=== PATIENT | female | born 1985 | race Caucasian/White ===

== ENCOUNTER 2018-09-05 18:38 | Emergency (ER) | payer OTHER ==
--- NOTE | 2018-09-05 18:50 | PDOC ---
Rapid Medical Evaluation Chief Complaint: Toothache Time Seen by Provider: 09/05/18 18:46 Medical Evaluation: Allergies Allergy/AdvReac Type Severity Reaction Status Date / Time azithromycin Allergy Mild Hives Verified 09/05/18 18:45 12 18:46 I have performed a brief in-person evaluation of this patient. The patient presents with a chief complaint of: L lower toothache x several days. Possible submandibular swollen glands. No f/c Pertinent physical exam findings: afebrile I have ordered the following:nothing The patient will proceed to the ED for further evaluation. Discharge Disposition - Diagnosis Toothache - Referrals - Patient Instructions - Post Discharge Activity
[2018-09-05 18:52] VITALS: BP 132/77; PULSE 68; TEMP 98.2; BMI 27.4
[2018-09-05] MEDS ORDERED: BUPIVACAINE HCL/PF (5 MG/ML) 30 ML VIAL IJ ONE (19:29)
--- NOTE | 2018-09-05 19:31 | PDOC ---
History of Present Illness - General Chief Complaint: Toothache Stated Complaint: TOOTHACHE Time Seen by Provider: 09/05/18 18:46 History Source: Patient Exam Limitations: No Limitations - History of Present Illness Initial Comments: 09/05/18 19:25 HISTORY OF PRESENT ILLNESS: 33-year-old woman without significant medical history of presents emergency department for evaluation of toothache for the past 4 days. Patient states sheis to see a dentist and is requesting antibiotics for her toothache. Patient reports taking [id number] medication with minimal relief of pain but is not requesting any pain medication at this time. No recent travel or sick contacts. PAST MEDICAL HISTORY: Denies past medical history SURGICAL HISTORY: Denies ALLERGIES: azithromycin REVIEW OF SYSTEMS General/Constitutional: Denies fever or chills. Denies weakness, weight change. HEENT: Denies change in vision. Denies ear pain or discharge. Denies sore throat. +toothache Cardiovascular: Denies chest pain or shortness of breath. Respiratory: Denies cough, wheezing, or hemoptysis. Gastrointestinal: Denies nausea, vomiting, diarrhea or constipation. Denies rectal bleeding. Genitourinary: Denies dysuria, frequency, or change in urination. Musculoskeletal: Denies joint or muscle swelling or pain. Denies neck or back pain. Skin and breasts: Denies rash or easy bruising. Neurologic: Denies headache, vertigo, loss of consciousness, or loss of sensation. Psychiatric: Denies depression or anxiety. Endocrine: Denies increased thirst. Denies abnormal weight change. Hematologic/Lymphatic: Denies anemia, easy bleeding, or history of blood clots. Allergic/Immunologic: Denies hives or skin allergy. Denies latex allergy. PHYSICAL EXAM General Appearance: Well-appearing, appropriately dressed. No apparent distress , no intoxication. HEENT: EOMI, PERRLA, normal ENT inspection, normal voice, TMs normal, pharynx normal. No conjunctival pallor. No photophobia, scleral icterus. Obvious dental caries to tooth #17. Gingival surface tender to palpation on the buccal aspect at the base of tooth #17. No discharge or drainage present. Swollen submandibular glands present. Neck: Supple. Trachea midline. No tenderness, rigidity, carotid bruit, stridor , lymphadenopathy, or thyromegaly. Respiratory/Chest: Lungs CTAB. No shortness of breath, chest tenderness, respiratory distress, accessory muscle use. No crackles, rales, rhonchi, stridor , wheezing, dullness Cardiovascular: RRR. S1, S2. No JVD, murmur, bradycardia, tachycardia. Past History - Past Medical History Allergies/Adverse Reactions: Allergies Allergy/AdvReac Type Severity Reaction Status Date / Time azithromycin Allergy Mild Hives Verified 09/05/18 18:45 Home Medications: Ambulatory Orders Penicillin V Potassium [Pen Vee K -] 500 mg PO QID #28 tablet 09/05/18 COPD: No Disorders: (POLYCYSTIC OVARIES) - Surgical History Abdominal Surgery: No - Reproductive History Polycystic Ovaries: Yes - Immunization History Immunization Up to Date: Yes - Suicide/Smoking/Psychosocial Hx Smoking Status: No Smoking History: Never smoked Have you smoked in the past 12 months: No Number of Cigarettes Smoked Daily: 0 Hx Alcohol Use: Yes Drug/Substance Use Hx: No Substance Use Type: None Hx Substance Use Treatment: No *Physical Exam - Vital Signs Last Vital Signs Temp Pulse Resp BP Pulse Ox 98.2 F 68 18 132/77 100 09/05/18 18:45 09/05/18 18:45 09/05/18 18:45 09/05/18 18:45 09/05/18 18:45 Moderate Sedation - Procedure Monitoring Vital Signs: Procedure Monitoring Vital Signs Temperature 98.2 F 09/05/18 18:45 Pulse Rate 68 09/05/18 18:45 Respiratory Rate 18 09/05/18 18:45 Blood Pressure 132/77 09/05/18 18:45 O2 Sat by Pulse Oximetry (%) 100 09/05/18 18:45 Medical Decision Making - Medical Decision Making 09/05/18 19:30 A/P: 33-year-old woman with toothache Obvious dental caries tooth #17 Chief 12 tender to palpation on the buccal surface at the base of tooth #17 Unable to express any fluid Submandible lymphadenopathy present 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 500 mg 4 times a day as an outpatient Discharge home *DC/Admit/Observation/Transfer Diagnosis at time of Disposition: Toothache - Discharge Dispostion Disposition: HOME Condition at time of disposition: Stable Decision to Admit order: No - Prescriptions Prescriptions: Penicillin V Potassium [Pen Vee K -] 500 mg PO QID #28 tablet - Referrals - Patient Instructions Printed Discharge Instructions: DI for Dental Pain Additional Instructions: Rest, drink lots of fluids: Teas, water, soups Saltwater gargles/ keep mouth clean and rinse after each meal May use wet teabag for pain relief to area Avoid hard chewing foods, stick to ice cream, Jell-O, yogurt etc. Tylenol or Motrin for fever and pain Complete all medication as prescribed Call [facility] at [phone] Followup with private physician in one to 2 days as needed Return to emergency department for worsened symptoms, fevers, swelling to face or worsened pain - Post Discharge Activity
== END 2018-09-05 19:47 | disposition home or self-care (01) ==
LOC: JER 18:38
PROC: 3E0D3BZ Introduction of Anesthetic Agent into Mouth and Pharynx, Percutaneous Approach (ICD-10-PCS; principal; 2018-09-05)
DX: K02.9 Dental caries, unspecified (principal); K08.89 Other specified disorders of teeth and supporting structures
CPT/HCPCS: 96372; 99281-25

== ENCOUNTER 2021-02-08 13:20 | Inpatient (IN) | payer OTHER ==
[2021-02-08] MEDS ORDERED: ACETAMINOPHEN 325 MG TABLET (FP) PO ONE (16:13)
[2021-02-08 17:09] LABS: BASO % 0.7 % (0-2.0); EOS % 1.3 % (0-4.5); HEMATOCRIT 41.9 % (32.4-45.2); HEMOGLOBIN 14.4 GM/dL (10.7-15.3); LYMPH % 29.7 % (8-40); MCH 30.9 pg (25.7-33.7); MCHC 34.4 g/dl (32.0-36.0); MEAN CELL VOLUME 90.1 fl (80-96); MEAN PLT VOLUME 9.3 fl (7.5-11.1); MONO % 6.9 % (3.8-10.2); NEUT % 61.4 % (42.8-82.8); PLATELET COUNT 396 K/MM3 (134-434); RBC 4.65 M/mm3 (3.60-5.2); WHITE BLOOD COUNT 9.5 K/mm3 (4.0-10.0)
[2021-02-08] MEDS ORDERED: ACETAMINOPHEN 325 MG TABLET (FP) ONE (17:13)
[2021-02-08 17:40] LABS: ALBUMIN 3.6 g/dl (3.4-5.0); CALCIUM 9.3 mg/dL (8.5-10.1)
[2021-02-08 17:41] LABS: BLOOD UREA NITROGEN 10.8 mg/dL (7-18)
[2021-02-08 17:44] LABS: CREATININE 0.7 mg/dL (0.55-1.3)
[2021-02-08 17:45] LABS: TOT PROT 7.5 g/dl (6.4-8.2)
[2021-02-08 17:49] LABS: BILIRUBIN,TOTAL 0.5 mg/dL (0.2-1)
[2021-02-08] MEDS ORDERED: ENOXAPARIN NA (PORCINE) 120 MG/0.8 ML DISP.SYRIN SQ ONE (18:39)
[2021-02-08] MEDS ORDERED: ENOXAPARIN NA (PORCINE) 80 MG/0.8 ML DISP.SYRIN SQ ONE (18:44)
[2021-02-09] MEDS ORDERED: DEXTROSE 5%-0.45% SALINE 1,000 ML IV SCH (00:01)
[2021-02-09] MEDS ORDERED: ACETAMINOPHEN 1000 MG/100 ML VIAL (NON FORMULARY) IVPB PRN (00:01)
[2021-02-09 02:05] VITALS: BMI 30.1
[2021-02-09] MEDS: ENOXAPARIN NA (PORCINE) 80 MG/0.8 ML DISP.SYRIN SQ SCH ×2 (07:47→19:47)
[2021-02-09 08:43] LABS: BASO % 0.6 % (0-2.0); EOS % 2.1 % (0-4.5); HEMATOCRIT 38.8 % (32.4-45.2); HEMOGLOBIN 13.3 GM/dL (10.7-15.3); LYMPH % 42.6 % (8-40); MCH 30.6 pg (25.7-33.7); MCHC 34.3 g/dl (32.0-36.0); MEAN CELL VOLUME 89.4 fl (80-96); MONO % 9.9 % (3.8-10.2); NEUT % 44.8 % (42.8-82.8); PLATELET COUNT 354 K/MM3 (134-434); RBC 4.34 M/mm3 (3.60-5.2); RDW 13.4 % (11.6-15.6); WHITE BLOOD COUNT 6.8 K/mm3 (4.0-10.0)
[2021-02-09 08:45] LABS: INR 1.13 (0.83-1.09); PROTHROMBIN TIME (PATIENT) 13.6 SEC (9.7-13.0)
[2021-02-09 09:13] LABS: BLOOD UREA NITROGEN 11.3 mg/dL (7-18); CALCIUM 8.8 mg/dL (8.5-10.1)
[2021-02-09 09:16] LABS: CREATININE 0.6 mg/dL (0.55-1.3)
[2021-02-09] MEDS ORDERED: ACETAMINOPHEN 500 MG TABLET (FP) PO PRN (13:32)
[2021-02-10] MEDS: ENOXAPARIN NA (PORCINE) 80 MG/0.8 ML DISP.SYRIN SQ SCH (06:14)
[2021-02-10 15:47] VITALS: BP 117/73; PULSE 92; TEMP 98.2
[2021-02-14 10:07] LABS: DRVVT - 56.9 sec (0.0-47.0); DRVVT CONFIRM SECONDS 1.2 ratio (0.8-1.2); dRVVT MIX 43.2 sec (0.0-40.4)
== END 2021-02-10 16:09 | disposition home or self-care (01) | DRG 197 ==
LOC: JER 13:20 → JERBED 18:37 → J8W 22:13
PROVIDERS: ADMIT Internal Medicine; ATTEND Family Medicine
DX: I82.491 Acute embolism and thrombosis of other specified deep vein of right lower extremity (principal); E28.2 Polycystic ovarian syndrome; Z20.822 Contact with and (suspected) exposure to COVID-19; S83.511A Sprain of anterior cruciate ligament of right knee, initial encounter; W19.XXXA Unspecified fall, initial encounter; Y93.89 Activity, other specified; Y92.009 Unspecified place in unspecified non-institutional (private) residence as the place of occurrence of the external cause; Y99.8 Other external cause status
CPT/HCPCS: 36415; 71045-TC-FY; 80048; 80053; 81240; 81241; 85025; 85610; 85613; 85732; 93005; 93010; 93971-TC; 97116-GP; 97161-GP; 99285-25; C9803; U0003; U0005